=== PATIENT | male | born 1985 | race Caucasian/White ===

== ENCOUNTER 2017-02-11 21:05 | Emergency (ER) | payer SELFPAY ==
[~2017-02-11] VITALS: Ht 172.7 cm; Wt 68.0 kg
[2017-02-11 21:07] VITALS: BP 139/100; PULSE 104; RESP 18; TEMP 98.9; O2SAT 98
--- NOTE | 2017-02-11 21:16 | PD ---
Physical Exam Date Seen by Provider: February 11, 2017 Time Seen by Provider: 21:13 Narrative 31 YOWM C/O LBP, NAUSEA, REFLUX, UPSET STOMACH AFTER WORK AT 3. NO FEVER PAIN NOW 05/12 VS NOTED AWAITING BED PLACEMENT Data Data Last Documented VS Vital Signs Date Time Temp Pulse Resp B/P Pulse Ox O2 Delivery O2 Flow Rate FiO2 02/11/17 21:07 98.9 104 18 139/100 98 Room Air [facility] Medical Record Reviewed: No Supervised Visit with ELIEL: Ankush Dixon February 11, 2017 21:16
--- NOTE | 2017-02-11 21:35 | PD ---
HPI Chief Complaint: Back/ Neck Pain or Injury Time Seen by Provider: 21:30 Travel History International Travel<30 days: No Contact w/Intl Traveler<30days: No Traveled to known affect area: No History of Present Illness HPI 31-year-old male here with complaint of one day of back pain and acid reflux. Patient complains of a pain in the bilateral flank that began this morning. Associated with a crampy abdominal discomfort and a "acid reflux" type pain. This pain is primarily in the umbilicus and radiates up into the epigastrium. He denies any history of pancreatitis, hepatobiliary pathology. No urinary symptoms. He has not had any nausea, vomiting. Bowel movements have been regular. No fever. PFSH Past Medical History Diminished Hearing: No Medical other: Yes (PKU. L ptx s/p chest tube) Past Surgical History Other Surgery: Yes (L chest tube for ptx) Social History Alcohol Use: Yes (1x week) Tobacco Use: No (quit 2 yrs ago) Substance Use: No Allergies-Medications (Allergen,Severity, Reaction): Coded Allergies: No Known Allergies (Unverified , 02/11/17) Reported Meds & Prescriptions Reported Meds & Active Scripts Active No Active Prescriptions or Reported Medications Review of Systems Except as stated in HPI: all other systems reviewed are Neg Physical Exam Narrative GENERAL: Well-appearing male in no acute distress SKIN: Focused skin assessment warm/dry. HEAD: Normocephalic. EYES: No scleral icterus. No injection or drainage. ENT: Mucous membranes pink and moist. NECK: Supple CARDIOVASCULAR: Regular rate and rhythm. No murmur appreciated. RESPIRATORY: No accessory muscle use. Clear to auscultation. Breath sounds equal bilaterally. GASTROINTESTINAL: Abdomen soft, periumbilical and epigastric abdominal tenderness to palpation without distention, bilateral CVA discomfort MUSCULOSKELETAL: Normal gait NEUROLOGICAL: Awake and alert. Normal speech. PSYCHIATRIC: Appropriate mood and affect; insight and judgment normal. Data Data Last Documented VS Vital Signs Date Time Temp Pulse Resp B/P Pulse Ox O2 Delivery O2 Flow Rate FiO2 02/11/17 21:49 16 98 Room Air 02/11/17 21:07 98.9 104 139/100 Orders Complete Blood Count With Diff (02/11/17 21:32) Comprehensive Metabolic Panel (02/11/17 21:32) Lipase (02/11/17 21:32) Urinalysis - C+S If Indicated (02/11/17 21:32) Iv Access Insert/Monitor (02/11/17 21:32) Ecg Monitoring (02/11/17 21:32) Oximetry (02/11/17 21:32) Sodium Chloride 0.9% Flush (Ns Flush) (02/11/17 21:45) Ketorolac Inj (Toradol Inj) (02/11/17 21:45) Al-Mag Hy-Si 40-40-4 Mg/Ml Liq (Mag-Al P (02/11/17 21:45) Lidocaine 2% Viscous (Xylocaine 2% Visco (02/11/17 21:45) Labs Laboratory Tests Test 02/11/17 02/11/17 21:30 22:10 White Blood Count 14.6 TH/MM3 Red Blood Count 4.67 MIL/MM3 Hemoglobin 14.1 GM/DL Hematocrit 40.2 % Mean Corpuscular Volume 86.2 FL Mean Corpuscular Hemoglobin 30.3 PG Mean Corpuscular Hemoglobin 35.1 % Concent Red Cell Distribution Width 11.4 % Platelet Count 245 TH/MM3 Mean Platelet Volume 9.8 FL Neutrophils (%) (Auto) 73.2 % Lymphocytes (%) (Auto) 16.4 % Monocytes (%) (Auto) 8.4 % Eosinophils (%) (Auto) 1.4 % Basophils (%) (Auto) 0.6 % Neutrophils # (Auto) 10.7 TH/MM3 Lymphocytes # (Auto) 2.4 TH/MM3 Monocytes # (Auto) 1.2 TH/MM3 Eosinophils # (Auto) 0.2 TH/MM3 Basophils # (Auto) 0.1 TH/MM3 CBC Comment DIFF FINAL Differential Comment Sodium Level 142 MEQ/L Potassium Level 3.6 MEQ/L Chloride Level 108 MEQ/L Carbon Dioxide Level 24.8 MEQ/L Anion Gap 9 MEQ/L Blood Urea Nitrogen 20 MG/DL Creatinine 1.63 MG/DL Estimat Glomerular Filtration 49 ML/MIN Rate Random Glucose 102 MG/DL Calcium Level 8.8 MG/DL Total Bilirubin 0.5 MG/DL Aspartate Amino Transf 17 U/L (AST/SGOT) Alanine Aminotransferase 22 U/L (ALT/SGPT) Alkaline Phosphatase 90 U/L Total Protein 7.4 GM/DL Albumin 3.9 GM/DL Lipase 423 U/L Urine Color LIGHT-YELLOW Urine Turbidity CLEAR Urine pH 5.5 Urine Specific [place] 1.007 Urine Protein 100 mg/dL Urine Glucose (UA) NEG mg/dL Urine Ketones NEG mg/dL Urine Occult Blood NEG Urine Nitrite NEG Urine Bilirubin NEG Urine Urobilinogen LESS THAN 2.0 MG/DL Urine Leukocyte Esterase NEG Urine WBC 1 /hpf Urine Squamous Epithelial <1 /hpf Cells Urine Hyaline Casts 4 /lpf Microscopic Urinalysis Comment CULT NOT INDICATED MDM Medical Decision Making Medical Screen Exam Complete: Yes Emergency Medical Condition: Yes Medical Record Reviewed: Yes Differential Diagnosis 31-year-old male here with 1 day of bilateral flank pain, abdominal cramping and "acid reflux type pain". Differential includes pancreatitis, hepatobiliary pathology, ureterolithiasis, UTI/pyelonephritis peptic ulcer disease, GERD. Narrative Course Patient placed on monitor, IV established and blood obtained. Given Toradol, GI cocktail. CBC, CMP, lipase, urinalysis notable for minimally elevated lipase. Patient is feeling clinically improved and will be discharged home with dietary restrictions as discussed. Diagnosis Primary Impression: Pancreatitis Qualified Code: K85.90 - Acute pancreatitis without infection or necrosis, unspecified pancreatitis type Referrals: [facility] as needed Additional Instructions: Clear liquids until Tuesday morning. On Tuesday morning he may advance to soft diet. If you tolerated this well, advance to regular low-fat diet on Tuesday morning. Return to the ER for the warning signs discussed. Med/Other Pt SpecificInfo: No Change to Meds Scripts No Active Prescriptions or Reported Meds Disposition: 01 DISCHARGE HOME Condition: Stable Dory Rendon MD February 11, 2017 21:35
[2017-02-11] MEDS: KETOROLAC TROMETHAMINE 30 MG/ML (IVP) VIAL IVP ONE (21:48)
[2017-02-11 21:49] VITALS: RESP 16; O2SAT 98
[2017-02-11 21:49] LABS: AUTOMATED NEUTROPHIL # 10.7 TH/MM3 (1.8-7.7); BASOPHIL # 0.1 TH/MM3 (0-0.2); BASOPHIL % 0.6 % (0.0-2.0); EOSINOPHIL # 0.2 TH/MM3 (0-0.4); EOSINOPHIL % 1.4 % (0.0-4.0); HEMATOCRIT 40.2 % (39.0-51.0); HEMO FLAGS DIFF FINAL; LYMPH % 16.4 % (9.0-44.0); LYMPHOCYTE # 2.4 TH/MM3 (1.0-4.8); MEAN CELL VOLUME 86.2 FL (80.0-100.0); MEAN CORPUSCULAR HEMOGLOBIN 30.3 PG (27.0-34.0); MEAN CORPUSCULAR HGB CONC 35.1 % (32.0-36.0); MONO % 8.4 % (0.0-8.0); NEUT % 73.2 % (16.0-70.0); PLATELET COUNT 245 TH/MM3 (150-450); RED BLOOD COUNT 4.67 MIL/MM3 (4.50-5.90); RED CELL DISTRIBUTION WIDTH 11.4 % (11.6-17.2); WHITE BLOOD COUNT 14.6 TH/MM3 (4.0-11.0)
[2017-02-11] MEDS: LIDOCAINE VISCOUS 2% SOLN 15 ML UDC PO ONE (21:49)
[2017-02-11] MEDS: ALUMINUM/MAGNESIUM/SIMETH 30 ML CUP PO ONE (21:49)
[2017-02-11] MEDS: SODIUM CHLORIDE 0.9% FLUSH 10 ML FLUSH IV FLUSH PRN (21:49)
[2017-02-11 22:17] LABS: ANION GAP 9 MEQ/L (5-15); AST (GOT) 17 U/L (15-37); BICARBONATE 24.8 MEQ/L (21.0-32.0); BLOOD UREA NITROGEN 20 MG/DL (7-18); CHLORIDE 108 MEQ/L (98-107); GLOMERULAR FILTRATION RATE 49 ML/MIN (>89); POTASSIUM 3.6 MEQ/L (3.5-5.1); SODIUM (NA) 142 MEQ/L (136-145)
[2017-02-11 22:20] LABS: ALKALINE PHOSPHATASE 90 U/L (45-117); ALT (GPT) 22 U/L (12-78); TOTAL BILIRUBIN ADULT 0.5 MG/DL (0.2-1.0)
[2017-02-11 22:35] LABS: BLOOD, URINE NEG (NEG); COMMENT (UR) CULT NOT INDICATED; CULTURE IF INDICATED CULT NOT INDICATED; GLUCOSE,URINE NEG (NEG); HYALINE CAST, URINE 4 /lpf (RARE); KETONE, URINE NEG (NEG); NITRITE,URINE NEG (NEG); PH, URINE 5.5 (5.0-8.5); SQUAMOUS EPITHELIAL CELL URINE <1 /hpf (0-5); URINE COLOR LIGHT-YELLOW (YELLW/STRAW)
== END 2017-02-11 23:24 | disposition home or self-care (01) ==
LOC: NEPD 21:05
DX: K85.90 Acute pancreatitis without necrosis or infection, unspecified (principal)
CPT/HCPCS: 80053; 81001; 83690; 85025; 96374; 99283; J1885